=== PATIENT | female | born 1975 | race Caucasian/White ===

== ENCOUNTER 2016-07-14 09:11 | Emergency (ER) | payer SELFPAY ==
[~2016-07-14] VITALS: Wt 68.0 kg
[~2016-07-14 09:11] MED LIST: FERR134T PO; MECL25TA2 PO; NORE1TAB48 PO; ONDA4TAB8 PO
--- NOTE | 2016-07-14 09:41 | ERD ---
ER Documentation Chief Complaint Date/Time DATE: 07/14/16 TIME: 09:36 Chief Complaint left ear pain since last night with no cough or sore throat HPI 40-year-old female with a history of vertigo presents to the emergency department complaining of left-sided ear pain which she describes as throbbing in nature and radiates into her left jaw since last night. Patient currently rates the pain as a 7 out of 10 and worse when chewing food. Patient denies any dizziness or vertigo at this time. She also denies recent illness, fever, cough, cold, congestion, sick contacts, nausea, vomiting, diarrhea, or abdominal pain. Patient states she is not . She has not attempted to treat her pain symptoms with any medication thus far. Patient denies any history of diabetes. ROS All systems reviewed and are negative except as per history of present illness. Medications Home Meds Active Scripts Ibuprofen* (Motrin*) 600 Mg Tab, 600 MG PO Q6, #30 TAB Prov:MORRO BOYD PA-C 07/14/16 Neomycin/Polymyxin/Hydrocort* (Cortisporin* Otic) 10 Ml Susp, 4 DROP LEFT EAR QID for 7 Days, #1 EA Prov:MORRO BOYD PA-C 07/14/16 Ferrous Sulfate (Iron) 134 Mg Tablet, 134 MG PO DAILY, #30 TAB Prov:HARRIET EVANS PA-C 12/22/15 Norethindrone-Ethinyl Estradiol (Ortho-Novum) 0.035-0.5 Mg Tablet, 1 TAB PO DAILY for 30 Days, TAB Prov:HARRIET EVANS PA-C 12/22/15 Ondansetron Hcl* (Zofran*) 4 Mg Tablet, 4 MG PO Q6H for NAUSEA AND/OR VOMITING, #20 TAB Prov:SLICK ROMERO PA-C 11/07/15 Meclizine Hcl* (Antivert*) 25 Mg Tablet, 25 MG PO Q6H Y for DIZZINESS, #20 TAB Prov:SLICK ROMERO PA-C 11/07/15 Allergies Allergies: Coded Allergies: No Known Allergy (Unverified , 07/14/16) PMhx/Soc History of Surgery: No Anesthesia Reaction: No Hx Neurological Disorder: No Hx Respiratory Disorders: No Hx Cardiac Disorders: No Hx Psychiatric Problems: No Hx Miscellaneous Medical Probl: No Hx Alcohol Use: No Hx Substance Use: No Hx Tobacco Use: No Physical Exam Vitals Vital Signs Date Time Temp Pulse Resp B/P Pulse Ox O2 Delivery O2 Flow Rate FiO2 07/14/16 09:13 98.4 92 21 140/84 98 Physical Exam Const: Well-developed, well-nourished, in no acute distress. Head: Atraumatic Eyes: Normal Conjunctiva ENT: Temporomandibular joint non tender to palpation, non erythematous. Jaw opens smoothly without reports of discomfort. No clicking of TMJ upon opening and closing of jaw. Left ear canal mildly swollen with clear drainage present. Left tympanic membrane nonerythematous, nonbulging. Right ear canal and tympanic membrane nonerythematous and nonswollen. Oropharynx clear without evidence of erythema, tonsillar swelling, or exudate. Uvula midline. No lymphadenopathy. Neck: Full range of motion..~ No meningismus. Resp: Clear to auscultation bilaterally, no wheezes, rhonchi, rales Cardio: Regular rate and rhythm, no murmurs Abd: Soft, non tender, non distended. Normal bowel sounds Skin: No petechiae or rashes Back: No midline or flank tenderness Ext: No cyanosis, or edema Neur: Awake and alert Psych: Normal Mood and Affect Results 24 hrs Current Medications Medications (Trade) Dose Ordered Sig/Rafael Route PRN Reason Start Time Stop Time Status Last Admin Dose Admin Ibuprofen (Motrin) 600 mg ONCE ONCE PO 07/14/16 10:00 07/14/16 10:00 DC 07/14/16 09:49 Procedures/MDM Patient given Motrin while in the emergency department and reports improvement of pain symptoms. Patient well appearing, afebrile and able to move jaw freely without discomfort during exam. Vital signs reviewed. History and physical revealed evidence of mild right-sided otitis externa.. The patient does not exhibit any clinical signs or symptoms concerning for, mandibular dislocation, TMJ, serious bacterial infection or systemic illness. Based on history and clinical exam findings the patient does not appear to have evidence of pneumonia, strep pharyngitis, urinary tract infection, bacteremia, sepsis, or meningitis. For these reasons I do not believe it is necessary to obtain laboratory testing or diagnostic imaging. I believe it would be appropriate for symptom control, and close outpatient primary care follow-up. Patient will receive prescription for Cortisporin and Motrin for symptomatic control. Patient instructed to follow up with PMD in 1-2 days for follow up or return here if symptoms worsen. Patient expressed understanding of and agreement with plan. Departure Diagnosis: Primary Impression: Otitis externa Otitis externa type: swimmer's ear Laterality: left Chronicity: acute Qualified Code: H60.332 - Acute swimmer's ear of left side Additional Impressions: Jaw pain Ear pain Laterality: left Qualified Code: H92.02 - Ear pain, left BOYD,MORRO Mccartney PA-C Jul 14, 2016 09:41
[2016-07-14] MEDS ORDERED: NPH10OT LEFT EAR (09:44)
[2016-07-14] MEDS ORDERED: IBUP-1542 PO (09:44)
[2016-07-14] MEDS ORDERED: IBUPROFEN 600 MG TAB PO ONE (10:00)
== END 2016-07-14 09:52 | disposition home or self-care (01) ==
LOC: FTE 09:11
DX: H60.91 Unspecified otitis externa, right ear (principal)
CPT/HCPCS: 99283

== ENCOUNTER 2016-10-16 09:27 | Emergency (ER) | payer SELFPAY ==
[~2016-10-16] VITALS: Ht 154.9 cm; Wt 62.0 kg
[~2016-10-16 09:27] MED LIST changes: +IBUP-1542 PO; +NPH10OT LEFT EAR
[2016-10-16 09:28] VITALS: Ht 154.9 cm; Wt 62.0 kg
--- NOTE | 2016-10-16 09:48 | ERD ---
ER Documentation Chief Complaint Date/Time DATE: 10/16/16 TIME: 09:47 Chief Complaint pt bib self with c/o painful urination HPI Patient is a 41-year-old female with no past medical history who presents to the ED with dysuria and urgency and mild hematuria 1 day. Denies fever or chills. Denies abdominal pain, nausea, vomiting or diarrhea. Denies leg pain or swelling. Denies chest pain, cough, shortness of breath or difficulty breathing. Denies headache or dizziness. Last normal menstrual period was 2 months ago. Denies vaginal discharge or vaginal bleeding. ROS All systems reviewed and are negative except as per history of present illness. Medications Home Meds Active Scripts Nitrofurantoin Monohyd Macrocr* (Macrobid*) 100 Mg Capsr, 100 MG PO BID for 14 Days, CAP Prov:SPIKE GARCIA PA-C 10/16/16 Ibuprofen* (Motrin*) 600 Mg Tab, 600 MG PO Q6, #30 TAB Prov:MORRO BOYD PA-C 07/14/16 Neomycin/Polymyxin/Hydrocort* (Cortisporin* Otic) 10 Ml Susp, 4 DROP LEFT EAR QID for 7 Days, #1 EA Prov:MORRO BOYD PA-C 07/14/16 Ferrous Sulfate (Iron) 134 Mg Tablet, 134 MG PO DAILY, #30 TAB Prov:HARRIET EVANS PA-C 12/22/15 Norethindrone-Ethinyl Estradiol (Ortho-Novum) 0.035-0.5 Mg Tablet, 1 TAB PO DAILY for 30 Days, TAB Prov:HARRIET EVANS PA-C 12/22/15 Ondansetron Hcl* (Zofran*) 4 Mg Tablet, 4 MG PO Q6H for NAUSEA AND/OR VOMITING, #20 TAB Prov:SLICK ROMERO PA-C 11/07/15 Meclizine Hcl* (Antivert*) 25 Mg Tablet, 25 MG PO Q6H Y for DIZZINESS, #20 TAB Prov:LSICK ROMERO PA-C 11/07/15 Allergies Allergies: Coded Allergies: No Known Allergy (Unverified , 07/14/16) PMhx/Soc Medical and Surgical Hx: pt denies Medical Hx, pt denies Surgical Hx History of Surgery: No Anesthesia Reaction: No Hx Neurological Disorder: No Hx Respiratory Disorders: No Hx Cardiac Disorders: No Hx Psychiatric Problems: No Hx Miscellaneous Medical Probl: No Hx Alcohol Use: No Hx Substance Use: No Hx Tobacco Use: No Smoking Status: Never smoker FmHx Family History: No coronary disease, No diabetes, No other Physical Exam Vitals Vital Signs Date Time Temp Pulse Resp B/P Pulse Ox O2 Delivery O2 Flow Rate FiO2 10/16/16 09:28 98.0 78 16 132/82 99 Physical Exam GENERAL: Well-developed, well-nourished female. Appears in no acute distress. HEAD: Normocephalic, atraumatic. EYES: Pupils are equally reactive bilaterally. EOMs grossly intact. No conjunctival erythema. ENT: Moist mucous membranes. No uvula deviation. No kissing tonsils. No exudates. NECK: Supple. No lymphadenopathy or thyromegaly. No meningismus. negative kernig. negative brudinski. LUNG: Clear to auscultation bilaterally. No rhonchi, wheezing, rales or coarse breath sounds. HEART: Regular rate and rhythm. No murmurs, rubs or gallops. ABDOMEN: No scars, ecchymosis or rashes noted. Soft, nontender, and nondistended. Positive bowel sounds in all four quadrants. No rebound tenderness , no guarding. (-) McBurneys point tenderness. No CVA tenderness. BACK: No midline tenderness. Extremities: Equal pulses bilaterally. No peripheral clubbing, cyanosis or edema. No unilateral leg swelling. NEUROLOGIC: Alert and oriented. Moving all four extremities. 5/5 strength in all extremities. Normal speech. Steady gait. SKIN: Normal color. Warm and dry. No rashes or lesions. Capillary refill < 2 seconds Results 24 hrs Laboratory Tests Test 10/16/16 10:19 Bedside Urine pH (LAB) 6.0 Bedside Urine Protein (LAB) 2+ Bedside Urine Glucose (UA) Negative Bedside Urine Ketones (LAB) 2+ Bedside Urine Blood 3+ Bedside Urine Nitrite (LAB) Positive Bedside Urine Leukocyte Esterase (L 3+ Current Medications Medications (Trade) Dose Ordered Sig/Rafael Route PRN Reason Start Time Stop Time Status Last Admin Dose Admin Acetaminophen (Tylenol Tab) 650 mg ONCE ONCE PO 10/16/16 10:00 10/16/16 10:01 DC 10/16/16 09:57 Procedures/MDM ER COURSE: I kept the patient and/or family informed of laboratory and diagnostic imaging results throughout the emergency room course. LABORATORY STUDIES Urine dip shows positive nitrites, 3+ leukocytes and hematuria. Negative test MEDICAL DECISION MAKING: This is a 41-year-old female who presents with dysuria and urgency 1 day. Vital signs were reviewed. Patient is afebrile. Patient is not hypoxic. Patient has a UTI. Low suspicion for ovarian torsion, PID, tuboovarian abscess , ectopic , bowel obstruction, pyelonephritis, appendicitis, cervicitis , septic , molar . DISCHARGE: At this time, patient is stable for discharge and outpatient management with no new complaints during the ER course. Patient was sent home with Macrobid. Patient will be discharged home with instructions to recheck for new or worsening symptoms such as fever, nausea, weakness, LOC and to follow up with primary care in the next 1-2 days. Patient was advised to return to the ER for any new or worsening symptoms. Plan was discussed and patient and/or family understands and agrees. Home instructions were given. Departure Diagnosis: Primary Impression: UTI (urinary tract infection) Urinary tract infection type: acute cystitis Hematuria presence: with hematuria Qualified Code: N30.01 - Acute cystitis with hematuria Condition: Stable SPIKE GARCIA PA-C October 16, 2016 09:48
[2016-10-16] MEDS ORDERED: ACETAMINOPHEN 325 MG TAB PO ONE (10:00)
[2016-10-16 10:17] LABS: URINE BLOOD (Dip) POC 3+ (NEGATIVE)
[2016-10-16] MEDS ORDERED: NITR-58 PO (10:19)
== END 2016-10-16 10:56 | disposition home or self-care (01) ==
LOC: FTE 09:27
DX: N30.01 Acute cystitis with hematuria (principal)
CPT/HCPCS: 81003; 99283

== ENCOUNTER 2016-12-05 10:12 | Emergency (ER) | payer MEDICAID ==
[~2016-12-05] VITALS: Wt 65.0 kg
[~2016-12-05 10:12] MED LIST changes: +NITR-58 PO
--- NOTE | 2016-12-05 11:13 | ERD ---
ER Documentation Chief Complaint Date/Time DATE: 12/05/16 TIME: 11:12 Chief Complaint LEFT EAR PAIN FOR THE PAST FEW MONTHS. NO DISTRESS NO FEVERS HPI This is a 41 year old female presenting to the ER complaining of left ear pain and dizziness, describing it as the room spinning that comes and goes and occurs every other day for more than 3 months. Patient states left ear pain is moderate in severity. She denies any dizziness today, She denies nausea. Denies fevers. Patient has been evaluated at this facility before for same complaint. Patient has not followed up with primary care ROS All systems reviewed and are negative except as per history of present illness. Medications Home Meds Active Scripts Ciprofloxacin Hcl/Dexameth (Ciprodex Otic Suspension) 7.5 Ml Drops.susp, 4 DROP LEFT EAR BID for 7 Days, EA Prov:CARLOS SANDERSON PA-C 12/05/16 Nitrofurantoin Monohyd Macrocr* (Macrobid*) 100 Mg Capsr, 100 MG PO BID for 14 Days, CAP Prov:SPIKE GARCIA PA-C 10/16/16 Ibuprofen* (Motrin*) 600 Mg Tab, 600 MG PO Q6, #30 TAB Prov:MORRO BOYD PA-C 07/14/16 Neomycin/Polymyxin/Hydrocort* (Cortisporin* Otic) 10 Ml Susp, 4 DROP LEFT EAR QID for 7 Days, #1 EA Prov:MORRO BOYD PA-C 07/14/16 Ferrous Sulfate (Iron) 134 Mg Tablet, 134 MG PO DAILY, #30 TAB Prov:HARRIET EVANS PA-C 12/22/15 Norethindrone-Ethinyl Estradiol (Ortho-Novum) 0.035-0.5 Mg Tablet, 1 TAB PO DAILY for 30 Days, TAB Prov:HARRIET EVANS PA-C 12/22/15 Ondansetron Hcl* (Zofran*) 4 Mg Tablet, 4 MG PO Q6H for NAUSEA AND/OR VOMITING, #20 TAB Prov:SLICK ROMERO PA-C 11/07/15 Meclizine Hcl* (Antivert*) 25 Mg Tablet, 25 MG PO Q6H Y for DIZZINESS, #20 TAB Prov:SLICK ROMERO PA-C 11/07/15 Allergies Allergies: Coded Allergies: No Known Allergy (Unverified , 07/14/16) PMhx/Soc History of Surgery: No Anesthesia Reaction: No Hx Neurological Disorder: No Hx Respiratory Disorders: No Hx Cardiac Disorders: No Hx Psychiatric Problems: No Hx Miscellaneous Medical Probl: No Hx Alcohol Use: No Hx Substance Use: No Hx Tobacco Use: No Smoking Status: Never smoker Physical Exam Vitals Vital Signs Date Time Temp Pulse Resp B/P Pulse Ox O2 Delivery O2 Flow Rate FiO2 12/05/16 10:17 98.6 94 20 140/77 100 Physical Exam GENERAL: well-developed/well-nourished, in no apparent distress, non-toxic appearing HENT: NC/AT, left external canal was tender with speculum, no pinna or tragus tenderness, mild irritation of the ear canal, nares patent, oropharynx clear without exudates EYES: Conjunctiva normal, PERRLA, EOMI, no nystagmus noted NECK: Supple, no lymphadenopathy PULM: CTA bilaterally, no rales, rhonchi, or wheezing heard CV: Normal S1S2, RRR, good capillary refill GI: Soft, non-distended, normal bowel sounds, non-tender BACK: No midline tenderness, no masses, No CVAT EXT: No clubbing, cyanosis, or edema NEURO: Alert and orientated to person, place, and time. CN II-IIX intact. Gait and coordination were normal. 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 Patient has been evaluated by this facility for for the same complaint. Patient did not have any signs or complaints of vertigo today. On examination, patient did have some mild irritation of the ear canal, there was no evidence of otitis media or significant otitis externa or necrotizing externa. Patient was mildly tender to palpation in the mastoid region therefore a CT of the left mastoid was done and did not show any evidence of mild mastoiditis. Since the patient has been experiencing the symptoms and already has been evaluated by this facility she is best to follow-up with an ENT specialist for further evaluation management. Patient will be given prescription for Ciprodex for her left ear for mild otitis externa and to follow-up with an ENT specialist. I discussed with the patient and she understands. She stable to be discharged home with strict precautions to return to the emergency department for any worsening sinus symptoms are not improving as expected. She agrees and understands Departure Diagnosis: Primary Impression: Left ear pain Condition: Stable CARLOS SANDERSON PA-C Dec 05, 2016 11:13
--- NOTE | 2016-12-05 11:50 | RADRPT ---
PROCEDURE: CT temporal bones without contrast CLINICAL INDICATION: Left ear pain. Questionable mastoiditis. TECHNIQUE: A CT of the temporal bones without contrast was performed on a multidetector CT scanner utilizing 0.6 mm axial sections. Coronal and sagittal images were reformatted. The exam CTDIvol = 68.13 mGy and DLP = 554.40 mGy-cm. One or more of the following dose reduction techniques were used: Automated exposure control. Adjustment of the mA and/or kV according to patient size. Use of iterative reconstruction technique. COMPARISON: None available FINDINGS: Right temporal bone: The external auditory canal is patent. The tympanic membrane is thin. Mastoi d air cells and middle ear cavity are clear. Ossicles and scutum are intact. Bony labyrinth struct ures are within normal limits and the otic capsule is intact. The internal auditory canal is normal in caliber. Left temporal bone: The external auditory canal is patent. The tympanic membrane is thin. Mastoid air cells and middle ear cavity are clear. Ossicles and scutum are intact. Bony labyrinth structu res are within normal limits and the otic capsule is intact. The internal auditory canal is normal in caliber. IMPRESSION: 1. Bilateral mastoid and middle ear cavities are clear. 2. Unremarkable CT of the temporal bones. RPTAT: BB .Azeb Garduno MD, MD Date Time Electronically viewed and signed by .Azeb Garduno MD, MD on 12/05/2016 11:50 .O/
[2016-12-05] MEDS ORDERED: CIPR7.5D4 LEFT EAR (12:07)
== END 2016-12-05 12:25 | disposition home or self-care (01) ==
LOC: FTE 10:12
DX: H92.02 Otalgia, left ear (principal)
CPT/HCPCS: 70480

== ENCOUNTER 2018-09-27 07:21 | Emergency (ER) | payer BC, MEDICAID ==
[~2018-09-27] VITALS: Ht 154.9 cm; Wt 58.3 kg
[~2018-09-27 07:21] MED LIST changes: +CIPR7.5D LEFT EAR
[2018-09-27 07:22] VITALS: BP 165/75; PULSE 92; RESP 14; Ht 154.9 cm; Wt 58.3 kg
[2018-09-27] MEDS ORDERED: KETOROLAC 60 MG INJ IM STA (08:05)
[2018-09-27] MEDS ORDERED: NAPR-985 PO (08:17)
[2018-09-27] MEDS ORDERED: CYCL10TA7 PO (08:17)
[2018-09-27] MEDS ORDERED: HYDR-4011 PO (08:17)
[2018-09-27] MEDS ORDERED: DIAZEPAM 5 MG TAB PO ONE (08:30)
--- NOTE | 2018-09-27 12:02 | ERD ---
ER Documentation Chief Complaint Chief Complaint PT with c/o L shoulder/arm pain , limited ROM, lifted heavy object at work HPI 43-year-old female presenting with pain to her left shoulder. She stated that yesterday at work she lifted a heavy item and it caused pain along her trapezius. She denies any numbness or tingling. [id number]. Has not taken medications for pain. Denies any shoulder pain or neck pain. States the pain is primarily over the soft tissue of the trapezius. Denies medical problems. NKDA. Surgical history denies. Social history denies ROS All systems reviewed and are negative except as per history of present illness. Medications Home Meds Active Scripts Cyclobenzaprine Hcl* (Cyclobenzaprine Hcl*) 10 Mg Tablet, 10 MG PO TID, #15 TAB Prov:ASHLEY TOURE PA-C 09/27/18 Naproxen* (Naprosyn*) 500 Mg Tablet, 500 MG PO BID PRN for PAIN AND/OR INFLAMMATION, #30 TAB Prov:ASHLEY TOURE PA-C 09/27/18 Hydrocodone/Acetaminophen ([place] 5-325 Tablet) 1 Each Tablet, 1 TAB PO Q6H PRN for PAIN, #7 TAB Prov:ASHLEY TOURE PA-C 09/27/18 Ciprofloxacin Hcl/Dexameth (Ciprodex Otic Suspension) 7.5 Ml Drops.susp, 4 DROP LEFT EAR BID for 7 Days, EA Prov:CARLOS SANDERSON PA-C 12/05/16 Nitrofurantoin Monohyd Macrocr* (Macrobid*) 100 Mg Capsr, 100 MG PO BID for 14 Days, CAP Prov:SPIKE GARCIA PA-C 10/16/16 Ibuprofen* (Motrin*) 600 Mg Tab, 600 MG PO Q6, #30 TAB Prov:MORRO BOYD PA-C 07/14/16 Neomycin/Polymyxin/Hydrocort* (Cortisporin* Otic) 10 Ml Susp, 4 DROP LEFT EAR QI D for 7 Days, #1 EA Prov:MORRO BOYD PA-C 07/14/16 Ferrous Sulfate (Iron) 134 Mg Tablet, 134 MG PO DAILY, #30 TAB Prov:HARRIET EVANS PA-C 12/22/15 Norethindrone-Ethinyl Estradiol (Ortho-Novum) 0.035-0.5 Mg Tablet, 1 TAB PO DAILY for 30 Days, TAB Prov:HARRIET EVANS CAMPBELL 12/22/15 Ondansetron Hcl* (Zofran*) 4 Mg Tablet, 4 MG PO Q6H for NAUSEA AND/OR VOMITING, #20 TAB Prov:NICKSLICK Mccartney PA-C 11/07/15 Meclizine Hcl* (Antivert*) 25 Mg Tablet, 25 MG PO Q6H PRN for DIZZINESS, #20 TAB Prov:GEOVANNISLICK MZiyad HIGHTOWER 11/07/15 Allergies Allergies: Coded Allergies: No Known Allergy (Unverified , 07/14/16) PMhx/Soc History of Surgery: No Anesthesia Reaction: No Hx Neurological Disorder: No Hx Respiratory Disorders: No Hx Cardiac Disorders: No Hx Psychiatric Problems: No Hx Miscellaneous Medical Probl: No Hx Alcohol Use: No Hx Substance Use: No Hx Tobacco Use: No Smoking Status: Never smoker FmHx Family History: No diabetes, No coronary disease, No other Physical Exam Vitals Vital Signs Date Temp Pulse Resp B/P (MAP) Pulse Ox O2 O2 Flow FiO2 Time Delivery Rate 09/27/18 98.2 92 14 165/75 100 07:22 (105) Physical Exam GENERAL: The patient is well-appearing, well-nourished, in no acute distress CHEST: Clear to auscultation bilaterally. There are no rales, wheezes or rhonchi. HEART: Regular rate and rhythm. No murmurs, clicks, rubs or gallops. No S3 or S4. ABDOMEN:Soft, nontender and nondistended. Good bowel sounds. No rebound or guarding. No gross peritonitis. No gross organomegaly or masses. BACK: No midline or flank tenderness. EXTREMITIES: Equal pulses bilaterally. There is no peripheral clubbing, cyanosis or edema. No focal swelling or erythema. Full range of motion. Grossly neurovascularly intact. NEUROLOGIC: Alert and oriented. Cranial nerves II through XII intact. Motor st rength in all 4 extremities with 5 out of 5 strength. Sensation grossly intact. Normal speech and gait. SKIN: There is no apparent rash or petechiae. The skin is warm and dry. Results 24 hrs Laboratory Tests Test 5/9/19 08:08 POC Beta HCG, Qualitative NEGATIVE Current Medications Medications Dose Sig/Rafael Start Time Status Last (Trade) Ordered Route PRN Stop Time Admin Dose Reason Admin Ketorolac 60 mg ONCE STAT 09/27/18 DC 09/27/18 Tromethamine IM 08:05 09/27/18 08:15 (Toradol) 08:06 Diazepam 5 mg ONCE ONCE 09/27/18 DC 09/27/18 (Valium) PO 08:30 09/27/18 08:09 08:31 Procedures/MDM MDM: 43-year-old female presenting with arm pain. I have low suspicion for acute fracture dislocation. Patient's pain is located along the trapezius and is likely indicative of muscular skeletal strain and spasm. Patient be discharged with supportive medications. Patient is told if symptoms change or worsen to return immediately to the ER. All questions answered at discharge Departure Diagnosis: Primary Impression: Muscle spasm Condition: Stable Patient Instructions: Muscle Spasm Referrals: [facility] YOU HAVE RECEIVED A MEDICAL SCREENING EXAM AND THE RESULTS INDICATE THAT YOU DO NOT HAVE A CONDITION THAT REQUIRES URGENT TREATMENT IN THE EMERGENCY DEPARTMENT. FURTHER EVALUATION AND TREATMENT OF YOUR CONDITION CAN WAIT UNTIL YOU ARE SEEN IN YOUR DOCTORS OFFICE WITHIN THE NEXT 1-2 DAYS. IT IS YOUR RESPONSIBILITY TO MAKE AN APPOINTMENT FOR FOLOW-UP CARE. IF YOU HAVE A PRIMARY DOCTOR --you should call your primary doctor and schedule an appointment IF YOU DO NOT HAVE A PRIMARY DOCTOR YOU CAN CALL OUR PHYSICIAN REFERRAL HOTLINE AT IF YOU CAN NOT AFFORD TO SEE A PHYSICIAN YOU CAN CHOSE FROM THE FOLLOWING [facility] CLINICS [facility] [address] [facility]. [facility] [address] [facility] [address] [facility] [address] [facility]. [facility] [address] [facility]. [facility]. [address] Additional Instructions: FOLLOW UP WITH YOUR PRIMARY CARE PHYSICIAN TOMORROW.Return to this facility if you are not improving as expected. ASHLEY TOURE PA-C September 27, 2018 12:02
== END 2018-09-27 08:27 | disposition home or self-care (01) ==
LOC: FTE 07:21
DX: M62.838 Other muscle spasm (principal)
CPT/HCPCS: 81025; 96372; J1885; Z7502; Z7610